=== PATIENT | female | born 1980 | race Caucasian/White ===

== ENCOUNTER 2018-07-05 06:51 | Outpatient (CLI) | payer OTHER | END 2018-07-05 07:07 | disposition home or self-care (01) | LOC: LAB 06:51 | DX: K80.20 Calculus of gallbladder without cholecystitis without obstruction (principal); Z01.812 Encounter for preprocedural laboratory examination ==

== ENCOUNTER → 2018-07-19 | Day surgery (SDC) | payer OTHER ==
[~2018-07-19] MED LIST: CIPRO500 MG PO; ULTRACET PO; ZANTAC300 MG PO
== END | disposition home or self-care (01) ==
LOC: CIR.AMB 05:30
DX: K80.10 Calculus of gallbladder with chronic cholecystitis without obstruction (principal); K66.0 Peritoneal adhesions (postprocedural) (postinfection); N83.291 Other ovarian cyst, right side

== ENCOUNTER 2021-11-28 09:25 | Emergency (ER) | payer OTHER ==
[~2021-11-28] VITALS: Ht 124.5 cm; Wt 51.3 kg
== END 2021-11-28 09:52 | disposition home or self-care (01) ==
LOC: ER 09:25
DX: J06.9 Acute upper respiratory infection, unspecified (principal)

== ENCOUNTER 2023-02-21 10:02 | Emergency (ER) | payer OTHER ==
[~2023-02-21] VITALS: Ht 149.9 cm; Wt 59.0 kg
== END 2023-02-21 16:17 ==
LOC: ER 10:02
DX: B34.9 Viral infection, unspecified (principal); Z20.822 Contact with and (suspected) exposure to COVID-19